=== PATIENT | female | born 1935 | race Caucasian/White ===

== ENCOUNTER 2022-03-30 12:17 | Outpatient (CLI) | payer MEDICARE ==
[~2022-03-30 12:17] MED LIST: Iopamidol 370 76% 100 ML VIAL ONE
== END 2022-03-30 12:18 | disposition home or self-care (01) ==
LOC: CSHCT 12:17
PROVIDERS: ATTEND Internal Medicine Cardiovascular Disease
DX: Z01.810 Encounter for preprocedural cardiovascular examination (principal); I48.0 Paroxysmal atrial fibrillation
CPT/HCPCS: 71275; 82565